=== PATIENT | male | born 1945 | race Caucasian/White ===

== ENCOUNTER 2020-02-04 05:24 | Day surgery (SDC) | payer MEDICARE ==
[~2020-02-04] VITALS: Ht 167.6 cm; Wt 69.9 kg
[~2020-02-04 05:24] MED LIST: ALEN70TA37 PO; AMIT25TA9 PO; ATOR40TA72 PO; CIPR500T5 PO; DULO60CA65 PO; GABA600T13 PO; LEVO112T5 PO; LIDOcaine 2% (20mg/ml) 5ml vial ONE; MIDAZolam 5mg/5ml vial ONE; OXYC20TA40 PO; RAMI2.5C2 PO; ROPIVAcaine 0.5% (5mg/ml) 30ml vial ONE; fentaNYL/PF 50MCG/1 ML 2ML syringe ONE; propofol inj 20 ML IV ONE; ringers solution, lacted 1,000 ML IV SCH
[2020-02-04] MEDS ORDERED: cefazolin/dext.iso 2gm/100ml 100 ML IV ONE (05:30)
[2020-02-04] MEDS ORDERED: famotidine 20mg tablet PO ONE (05:30)
[2020-02-04 05:35] VITALS: BP 166/70
[2020-02-04] MEDS ORDERED: LIDOcaine 1% (10mg/ml) 2ml vial ONE (05:44)
[2020-02-04] MEDS ORDERED: BUPIVAcaine/PF 2.5 mg/ml (0.25%) 30ml vial ONE (05:55)
[2020-02-04] MEDS ORDERED: ringers solution, lacted 1,000 ML IV SCH (06:38)
[2020-02-04] MEDS ORDERED: morphine 4 MG/ML inj SYRINge IV PRN (06:40)
[2020-02-04] MEDS ORDERED: ondansetron/PF 4mg/2ml inj IV PRN (06:40)
[2020-02-04] MEDS ORDERED: morphine 2 MG/ML inj. syringe IV PRN (06:40)
[2020-02-04] MEDS ORDERED: fentaNYL/PF 50MCG/1 ML 2ML syringe IV PRN ×2 (06:40)
[2020-02-04] MEDS ORDERED: labetalol 20mg/4ml (5mg/ml) syringe IV PRN (06:40)
[2020-02-04] MEDS ORDERED: hydrALAZINE 20mg/ml inj. IV PRN (06:40)
[2020-02-04] MEDS ORDERED: LIDOcaine 0.5% (5mg/ml) 50ml vial ONE (06:43)
[2020-02-04] MEDS ORDERED: fentaNYL/PF 50MCG/1 ML 2ML syringe ONE (06:45)
[2020-02-04] MEDS ORDERED: MIDAZolam 5mg/5ml vial ONE (06:45)
[2020-02-04 06:58] LABS: BASOPHILS # (AUTO) 0.1 X10'3 (0-0.2); BASOPHILS % (AUTO) 1.1 % (0-1); EOSINOPHILS # (AUTO) 0.8 X10'3 (0-0.9); LYMPHOCYTES # (AUTO) 1.6 X10'3 (1.1-4.8); LYMPHOCYTES % (AUTO) 18.4 % (21-51); MEAN CORPUSCULAR HEMOGLOBIN 28.7 PG (27.0-31.0); MEAN CORPUSCULAR HGB CONC 33.4 g/dL (33.0-36.5); MEAN CORPUSCULAR VOLUME 86.1 FL (78-98); MEAN PLATELET VOLUME 8.1 FL (7.4-10.4); MONOCYTES # (AUTO) 0.8 X10'3 (0-0.9); MONOCYTES % (AUTO) 9.4 % (2-12); NEUTROPHILS # (AUTO) 5.4 X10'3 (1.8-7.7); NEUTROPHILS % (AUTO) 62.1 % (42-75); PRE OP HEMATOCRIT 45.3 % (42.0-52.0); PRE OP HEMOGLOBIN 15.1 g/dL (14.0-17.9); PRE OP PLATELET COUNT 256 X10'3 (140-440); RED BLOOD COUNT 5.26 X10'6 (4.70-6.10); RED CELL DISTRIBUTION WIDTH 16.1 % (11.5-14.5)
[2020-02-04 07:10] LABS: ALBUMIN 3.5 G/DL (3.4-5.0); ALBUMIN/GLOBULIN RATIO 0.9 (1.1-1.5); ALKALINE PHOSPHATASE 92 IU/L (46-116); BLOOD UREA NITROGEN 14 MG/DL (7-18); BUN/CREATININE RATIO 13.2 (5.4-32.0); CALCIUM 8.6 MG/DL (8.5-10.1); CHLORIDE 105 MMOL/L (99-107); CREATININE 1.06 MG/DL (0.60-1.10); PRE OP ALT 17 U/L (30-65); PRE OP ANION GAP 8 (8-16); PRE OP AST 22 U/L (10-37); PRE OP BILIRUB, TOTAL 0.3 MG/DL (0.0-1.0); PRE OP GLUCOSE 90 MG/DL (70-104); PRE OP POTASSIUM 4.3 MMOL/L (3.4-5.1); PRE OP SODIUM 137 MMOL/L (135-145); TOTAL CARBON DIOXIDE 24.1 MMOL/L (24-32); TOTAL PROTEIN 7.5 G/DL (6.4-8.2); eGFR 68 ML/MIN
[2020-02-04 07:34] VITALS: BP 105/76
--- NOTE | 2020-02-04 07:34 | NUR ---
Received from OR via [facility] , accompanied by Anesthesiologist JENIFFER and report given by Anesthesiolgist. PATIENT WITH 20G PIV IN LEFT UE RUNNIGN LR AT 100. DENIES PAIN. RIGHT PINKY DRESSING IS CDI. REINA. VSS Addendum: 02/04/20 at 0743 by Vineet Singh RN, RN Amended: Links added.
[2020-02-04 07:44] VITALS: BP 104/73
[2020-02-04 07:54] VITALS: BP 105/77
[2020-02-04 08:04] VITALS: BP 112/68
[2020-02-04 08:14] VITALS: BP 116/64
--- NOTE | 2020-02-04 08:24 | NUR ---
All dc criteria for discharge home has been met. IV taken out without complications. All questions answered regarding dc paperwork. Vss. Significant other present to take patient home. Dressings cdi and vital signs stable. Taken out via wheelchair to personal vehicle where patient taken home by family/friend. Addendum: 02/04/20 at 0833 by Vineet Singh RN, RN Amended: Links added.
== END 2020-02-04 08:24 | disposition home or self-care (01) ==
LOC: PAS 05:24
PROVIDERS: ATTEND Orthopaedic Surgery Hand Surgery
PROC: 0X6V0Z3 Detachment at Right Little Finger, Low, Open Approach (ICD-10-PCS; principal; 2020-02-04 07:03)
DX: M86.641 Other chronic osteomyelitis, right hand (principal); M79.644 Pain in right finger(s); M79.641 Pain in right hand; Z89.021 Acquired absence of right finger(s)
CPT/HCPCS: 26951; 36415; 80053; 82948; 85025; 93005; J2001; J2250; J3010; J3490; A7000; J2704; J2795; J7120

== ENCOUNTER 2022-04-09 09:53 | Day surgery (SDC) | payer MEDICARE ==
[~2022-04-09] VITALS: Ht 168.3 cm; Wt 61.4 kg
[~2022-04-09 09:53] MED LIST changes: -LIDOcaine 2% (20mg/ml) 5ml vial ONE; -MIDAZolam 5mg/5ml vial ONE; -RAMI2.5C2 PO; +RAMI2.5C54 PO; -ROPIVAcaine 0.5% (5mg/ml) 30ml vial ONE; -fentaNYL/PF 50MCG/1 ML 2ML syringe ONE; -propofol inj 20 ML IV ONE; -ringers solution, lacted 1,000 ML IV SCH
[2022-04-09 10:05] VITALS: BP 129/69
[2022-04-09] MEDS ORDERED: PREG150C PO (11:12)
[2022-04-09] MEDS ORDERED: ERGO500054 PO (11:12)
[2022-04-09] MEDS ORDERED: ASPI81TA PO (11:13)
[2022-04-09] MEDS ORDERED: BUPR300F3 PO (11:14)
[2022-04-09] MEDS ORDERED: fentaNYL/PF 50MCG/1 ML 2ML syringe ONE (12:00)
[2022-04-09] MEDS ORDERED: MIDAZolam 1 MG/ML 5ML VIAL ONE (12:00)
[2022-04-09 12:41] VITALS: BP 118/69
[2022-04-09 12:51] VITALS: BP 135/72
[2022-04-09 13:01] VITALS: BP 128/72
== END 2022-04-09 13:40 | disposition home or self-care (01) ==
LOC: GI LAB 09:53
PROVIDERS: ATTEND Internal Medicine Gastroenterology
DX: R19.5 Other fecal abnormalities (principal); D12.2 Benign neoplasm of ascending colon; D12.5 Benign neoplasm of sigmoid colon; K57.30 Diverticulosis of large intestine without perforation or abscess without bleeding; K64.8 Other hemorrhoids
CPT/HCPCS: 45385; 45390; 88305; 99153; G0500; J2250; J3010; Z7512; 45335; 99152

== ENCOUNTER 2023-01-07 10:35 | Day surgery (SDC) | payer MEDICARE ==
[~2023-01-07] VITALS: Ht 167.6 cm; Wt 68.1 kg
[~2023-01-07 10:35] MED LIST changes: -ALEN70TA37 PO; -AMIT25TA9 PO; +ASPI81TA PO; +BUPR300F3 PO; -CIPR500T5 PO; +ERGO500054 PO; -GABA600T13 PO; -OXYC20TA40 PO; +PREG150C PO
[2023-01-07 11:10] VITALS: BP 145/116
[2023-01-07] MEDS ORDERED: ALEN70TA60 PO (11:49)
[2023-01-07] MEDS ORDERED: MIDAZolam 1 MG/ML 5ML VIAL ONE (12:10)
[2023-01-07] MEDS ORDERED: fentaNYL/PF 50MCG/1 ML 2ML syringe ONE (12:11)
[2023-01-07 12:45] VITALS: BP 148/88
[2023-01-07 12:55] VITALS: BP 158/75
[2023-01-07 13:05] VITALS: BP 171/77
[2023-01-07 13:15] VITALS: BP 161/75
== END 2023-01-07 13:20 | disposition home or self-care (01) ==
LOC: GI LAB 10:35
PROVIDERS: ATTEND Internal Medicine Gastroenterology
DX: Z09 Encounter for follow-up examination after completed treatment for conditions other than malignant neoplasm (principal); D12.5 Benign neoplasm of sigmoid colon; K63.5 Polyp of colon; K57.30 Diverticulosis of large intestine without perforation or abscess without bleeding; K64.8 Other hemorrhoids; F17.210 Nicotine dependence, cigarettes, uncomplicated; Z72.89 Other problems related to lifestyle; Z98.890 Other specified postprocedural states; Z86.010 Personal history of colon polyps; Z79.82 Long term (current) use of aspirin; Z79.899 Other long term (current) drug therapy
CPT/HCPCS: 45385; 99153; C1889; G0500; J2250; J3010; J7030; Z7512; 88305; 99152; A4620